=== PATIENT | male | born 1975 | race Caucasian/White ===

== ENCOUNTER 2020-11-05 21:46 | Emergency (ER) | payer BC, SELFPAY ==
[2020-11-05 21:55] VITALS: BP 155/99; PULSE 127; RESP 16; TEMP 36.2; O2SAT 97
[2020-11-05 23:23] LABS: Add Urine Microscopic? YES; Appearance Urine Clear (Clear); Bilirubin Urine Negative (Negative); Blood Urine Negative (Negative); Color Urine Yellow (Yellow); Glucose Urine UA Negative (Negative); Ketones Urine Negative (Negative); Leukocyte Esterase Ur Negative LEU/UL (Negative); Mucus Urine Moderate /lpf; Nitrate Urine Negative (Negative); Protein Urine 1+ mg/dL (Negative); RBC Urine 0-2 /hpf (0-2); Specific Grav Ur 1.029 (1.001-1.035); Urobilinogen Urine Negative mg/dL (<2.0); WBC Urine 0-3 /hpf
[2020-11-05 23:34] LABS: Barbiturate Screen Urine Negative (Negative); Benzodiazepines Screen Urine Negative (Negative)
[2020-11-05 23:35] LABS: Cannabinoid Screen Urine Negative (Negative); Cocaine Screen Urine Negative (Negative); Methadone Screen Urine Negative (Negative); Opiate Screen Urine Negative (Negative); Phencyclidine Screen Urine Negative (Negative)
[2020-11-06 00:03] LABS: Amphetamine Screen Urine Positive (Negative)
--- NOTE | 2020-11-06 00:30 | PC.NURSE ---
pt called a cab from the waiting room phone and was seen leaving via cab.
== END 2020-11-06 00:10 | disposition left against medical advice (07) ==
PROVIDERS: Emergency Provider Emergency Medicine; PCP Internal Medicine
DX: R45.851 Suicidal ideations (principal)
CPT/HCPCS: 80307; 81001; 99199

== ENCOUNTER 2021-04-30 09:10 | Emergency (ER) | payer BC, SELFPAY ==
[2021-04-30 09:21] VITALS: BP 157/100; PULSE 122; RESP 18; TEMP 36.6; O2SAT 99
--- NOTE | 2021-04-30 09:31 | ED.SKABFB ---
HPI - Skin/Abscess/Foreign Bdy General Chief complaint: Skin/Abscess/Foreign Body Stated complaint: ? spider bite left leg Time Seen by Provider: 04/30/21 09:31 Source: patient Mode of arrival: ambulatory Limitations: no limitations History of Present Illness HPI narrative: 45-year-old male Here for sore on his lower left leg Patient says it has been there for about 2-1/2 weeks and seems to be getting better He says that today it was bothering him in some new and unspecified way so he thought he should come and have it checked to make sure it was not a brown recluse bite Related Data Allergies Allergy/AdvReac Type Severity Reaction Status Date / Time No Known Allergies Allergy Verified 04/30/21 09:23 Review of Systems Constitutional: Constitutional: Denies chills and Denies fever(s) Musculoskeletal: Musculoskeletal: Denies myalgias, Denies arthralgias and Denies joint swelling PMFSH Social History Social History Gender identity (if verbalized by the patient): Male Exam Const: General: no acute distress and alert Orientation/consciousness: patient oriented x3 Resp: Effort & Inspection: normal respiratory effort and not labored Skin: Other: There is a sore on the outer left calf with a mild amount of induration, no discharge, faint erythema for a few millimeters around it, does not seem like an abscess, no necrotic center Neuro: General: patient oriented x3 Speech: normal speech Course Vital Signs Vital signs: Vital Signs Temperature 36.6 C 04/30/21 09:21 Pulse Rate 122 H 04/30/21 09:21 Respiratory Rate 18 04/30/21 09:21 Blood Pressure 157/100 H 04/30/21 09:21 Pulse Oximetry 99 04/30/21 09:21 Temperature 36.6 C 04/30/21 09:21 Pulse Rate 122 H 04/30/21 09:21 Respiratory Rate 18 04/30/21 09:21 Blood Pressure 157/100 H 04/30/21 09:21 Pulse Oximetry 99 04/30/21 09:21 Discharge Plan Discharge Clinical Impression: Abscess of skin or subcutaneous tissue Patient Disposition: Home, Self-Care Condition: Stable Instructions: Antibiotic Form, Abscess (ED) Prescriptions: New sulfamethoxazole-trimethoprim [Bactrim DS] 800-160 mg tablet 1 tablet PO Q12H Qty: 14 RF: 0 Follow-up/Referrals: Amari,Jann Guillen MD [Primary Care Provider] - (1-2 days )
== END 2021-04-30 09:44 | disposition home or self-care (01) ==
PROVIDERS: Emergency Provider Emergency Medicine; PCP Internal Medicine
DX: L02.416 Cutaneous abscess of left lower limb (principal)
CPT/HCPCS: 99283

== ENCOUNTER 2021-05-01 23:39 | Emergency (ER) | payer BC, SELFPAY ==
[2021-05-01 23:38] VITALS: BP 152/102; PULSE 117; RESP 22; TEMP 36.5; O2SAT 98
--- NOTE | 2021-05-02 00:13 | ED.ANXIETY ---
HPI - Anxiety General Chief Complaint: Anxiety Stated Complaint: anxiety, hallucinations Time Seen by Provider: 05/01/21 23:51 Source: patient and EMS History of Present Illness HPI narrative: Patient presents with anxiety and hallucinations. Patient reports that symptoms for the past 3 days. Today he was found in a store police was called who called the EMS and brought him in for evaluation. Reports he seeing objects often the distance. He does reports he has been drinking this evening and did methamphetamines. Patient reports he drinks every other day approximately 8 beers he has had previous withdraws but has not had any withdrawal symptoms in several years. He does report he used methamphetamines today this is the only does it recreationally, denies any auditory hallucinations denies any SI or HI Related Data Allergies Allergy/AdvReac Type Severity Reaction Status Date / Time No Known Allergies Allergy Verified 05/02/21 00:03 Review of Systems Review of Systems: CONSTITUTIONAL: Denies fever, chills, or sweats. EYES: Denies visual changes, redness, or discharge. ENT: Denies rhinorrhea, congestion, sore throat, or otalgia. CARDIOVASCULAR: Denies chest pain, palpitations, or edema. RESPIRATORY: Denies cough or dyspnea. GASTROINTESTINAL: Denies abdominal pain, nausea, vomiting, or diarrhea. GENITOURINARY: Denies dysuria or hematuria. SKIN: Denies rash or itching. MUSCULOSKELETAL: Denies back pain, joint pain, or myalgia. NEUROLOGIC: Denies headache, numbness, dizziness, or weakness. PSYCHIATRIC: Reports feeling anxious All systems reviewed & are unremarkable except as noted in HPI and below PMFSH Past Medical History Medical History (Updated 05/02/21 @ 01:29 by Delmar Marques MD) Depression Social History Social History Gender identity (if verbalized by the patient): Male Exam Narrative: GENERAL: Well-appearing, well-nourished, and in no acute distress. HEAD: Normocephalic, atraumatic. EYES: PERRLA and EOMI. ENT: Nares clear, no rhinorrhea or epistaxis. Mucous membranes moist. NECK: Supple. No masses. No JVD CHEST: Clear to auscultation. No respiratory distress. No wheezes rales or rhonchi HEART: Regular rate and rhythm. No murmur heard. Normal peripheral pulses. ABDOMEN: Soft, nontender, nondistended, normal active bowel sounds. EXTREMITIES: Normal range of motion. No edema. SKIN: Warm, dry, no rash. NEURO: No focal deficits. Alert and oriented x3. PSYCH: Patient stares off into the distance pointing at objects that are not present in the room Course Course Emergency Course: Patient's left AGAINST MEDICAL ADVICE after initial work-up was ordered. Urine was obtained patient did test positive for methamphetamines likely contributing to his dog scratch symptoms. Patient refused supportive therapies. Vital Signs Vital signs: Vital Signs Temperature 36.5 C 05/01/21 23:38 Pulse Rate 117 H 05/01/21 23:38 Respiratory Rate 22 H 05/01/21 23:38 Blood Pressure 152/102 H 05/01/21 23:38 Pulse Oximetry 98 05/01/21 23:38 Temperature 36.5 C 05/01/21 23:38 Pulse Rate 117 H 05/01/21 23:38 Respiratory Rate 22 H 05/01/21 23:38 Blood Pressure 152/102 H 05/01/21 23:38 Pulse Oximetry 98 05/01/21 23:38 Discharge Plan Discharge Clinical Impression: Methamphetamine abuse Patient Disposition: Left Against Medical Advice Condition: Stable Prescriptions: No Action sulfamethoxazole-trimethoprim [Bactrim DS] 800-160 mg tablet 1 tablet PO Q12H Qty: 14 RF: 0 Follow-up/Referrals: Amari,Jann Guillen MD [Primary Care Provider] - Time of Disposition: :
--- NOTE | 2021-05-02 00:45 | PC.NURSE ---
pt refusing to go into room at this time. pt stating I'm not getting into that room with the bed moving. pt states I dont want treatment anymore. pt answering orientation questions correctly and wanting to sign out AMA. JOSE rivera notified and JOSE rivera okay with pt signing out AMA at this time.
== END 2021-05-02 00:50 | disposition left against medical advice (07) ==
LOC: ANHED 05-02 00:05
PROVIDERS: Emergency Provider Emergency Medicine; PCP Internal Medicine
DX: F15.10 Other stimulant abuse, uncomplicated (principal)
CPT/HCPCS: 99281